=== PATIENT | male | born 2000 | race African-American/Black ===

== ENCOUNTER 2024-02-19 15:15 | Outpatient (CLI) | payer OTHER ==
[2024-02-19 23:53] LABS: CHLAMYDIA TRACHOMATIS DNA NEGATIVE (NEGATIVE); NEISSERIA GONORRHOEAE DNA NEGATIVE (NEGATIVE); TRICHOMONAS VAGINALIS DNA NEGATIVE (NEGATIVE)
[2024-02-20 04:10] LABS: HIV SCREEN 4TH GENERATION Non Reactive (Non Reactive)
[2024-02-20 05:14] LABS: RPR Non Reactive (Non Reactive)
[2024-02-20 06:11] LABS: HSV 1 IGG TYPE SPEC <0.91 index (0.00-0.90); HSV 2 IGG TYPE SPEC <0.91 index (0.00-0.90)
== END 2024-02-19 15:30 | disposition home or self-care (01) ==
LOC: LAB.N 15:15
PROVIDERS: ATTEND Family Medicine
DX: Z11.3 Encounter for screening for infections with a predominantly sexual mode of transmission (principal)
CPT/HCPCS: 86592; 86695; 86696; 86803; 87389; 87491; 87591; 87661

== ENCOUNTER 2024-02-24 11:59 | Emergency (ER) | payer OTHER ==
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
[2024-02-24 14:11] VITALS: BP 108/51; O2SAT 100
== END 2024-02-24 14:02 | disposition home or self-care (01) ==
LOC: ED 11:59
DX: S39.012A Strain of muscle, fascia and tendon of lower back, initial encounter (principal); V89.2XXA Person injured in unspecified motor-vehicle accident, traffic, initial encounter; Y92.410 Unspecified street and highway as the place of occurrence of the external cause
CPT/HCPCS: 99283

== ENCOUNTER 2024-06-26 21:49 | Outpatient (CLI) | payer OTHER ==
--- NOTE | 2024-06-28 23:03 | Ultrasound Report ---
PROCEDURE: Abdomen Complete INDICATIONS: ABD PAIN TECHNIQUE: Real-time scanning was performed of the abdominal and retroperitoneal organs, with image documentatio n. COMPARISON: None. FINDINGS: Liver: Liver is normal in size and homogeneous in echotexture. Gallbladder: No gallstones, sludge, wall thickening or pericholecystic edema. Biliary ducts: Intrahepatic bile ducts are non-dilated. Extrahepatic bile duct caliber measures 4 m m. Normal is 6-7 mm or less in diameter, or 10 mm or less post-cholecystectomy. Pancreas: Visualized portions of the pancreas are sonographically normal. Spleen: Spleen is normal in size and homogeneous in echotexture. Measures 9 cm Kidneys: Kidneys are normal in size and echotexture. Right kidney measures 10.2 cm long; left kidne y measures 10.7 cm long. No hydronephrosis or nephrolithiasis. No solid masses. No complex renal cy stic lesions which require follow-up. Aorta: Visualized aorta is normal in caliber at less than 3 cm. Iliacs: Proximal common iliac arteries are normal in caliber at less than 2.5 cm. IVC: Intrahepatic inferior vena cava is patent. Miscellaneous: No free abdominal fluid. IMPRESSION: Unremarkable abdominal ultrasound. No acute cholecystitis. No gallstones. Reviewed by: Aren Thompson MD on 06/28/2024 11:02 PM PDT Approved by: Aren Thompson MD on 06/28/2024 11:02 PM PDT Station ID: [id number]
== END 2024-06-26 21:50 | disposition home or self-care (01) ==
LOC: DI 21:49
DX: R10.9 Unspecified abdominal pain (principal); E80.6 Other disorders of bilirubin metabolism